=== PATIENT | female | born 1995 | race Caucasian/White ===

== ENCOUNTER 2018-07-27 11:18 | Inpatient (IN) | payer OTHER ==
[~2018-07-27] VITALS: Ht 165.1 cm; Wt 71.4 kg
[2018-07-27] VITALS (36 sets, daily range): BP systolic 124–172; BP diastolic 66–109
[~2018-07-27 11:18] MED LIST: PRENTAB9 PO; ZOFR8TAB22 PO
[2018-07-27 12:20] LABS: HEMATOCRIT 31.7 % (36.0-47.0); HEMOGLOBIN 10.8 g/dl (12.0-15.5); MEAN CORPUSCULAR HEMOGLOBIN 29.3 pg (27.0-33.0); MEAN CORPUSCULAR HGB CONC 34.1 g/dl (32.0-36.5); MEAN CORPUSCULAR VOLUME 86.1 fl (80.0-96.0); PLATELET COUNT, AUTOMATED 175 10^3/uL (150-450); RED BLOOD COUNT 3.68 10^6/uL (4.00-5.40); WHITE BLOOD COUNT 9.2 10^3/uL (4.0-10.0)
[2018-07-27 13:06] LABS: ALT/SGPT 17 U/L (12-78); BILIRUBIN,TOTAL 0.2 MG/DL (0.2-1.0); CREATININE FOR GFR 1.04 MG/DL (0.55-1.30); GLOMERULAR FILTRATION RATE > 60.0 (>60); LDH LACTATE DEHYDROGENASE 166 U/L (84-246); URIC ACID 6.4 MG/DL (2.6-6.0)
[2018-07-27] MEDS ORDERED: LR 1,000 ML IV SCH (14:06)
[2018-07-27] MEDS ORDERED: LACTATED RINGER'S 1000 ML IV STA (14:06)
[2018-07-27] MEDS ORDERED: OXYTOCIN DRIP 30 UNITS in APPROPRIATE DILUENT 1 EA IV SCH (14:15)
--- NOTE | 2018-07-27 14:18 | HPEPDOC ---
Obstetrical History & Physical General Date of Admission Jul 27, 2018 at 14:08 History of Present Illness 23 y/o at 38+1 with new dx of GHTN today. While being monitored has had very labile BP's from nl to a systolic of 163. Lab eval shows a Uric acid 6.4 and a Urine Pr/Cr is just >0.3. Preg c/b GDMA1 (well controlled). Pos FM. No VB/LOF/ALONSO/RUQ pain. 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 history Past Medical History Medical History EI asthma as a child but not in several years, no rx for albuterol currently Surgical History: Trimble teeth Family History Significant Family History: No pertinent family hx Social History Marital Status: Family situation: Spouse/partner home Psychosocial History: No pertinent psych hx * Smoker: non-smoker Alcohol: Denies Drugs: denies Abuse Violence Screening Have you been hit/kicked/slapp: No Have you been sexually assault: No Imunizations Tdap status: current Influenza Status: current Allergies Coded Allergies: No Known Drug Allergy (Verified Allergy, Unknown, 06/01/18) Medications Scheduled Multivitamins/ ( 27-0.8 mg) 1 Tab Tab, 1 TAB PO QHSP Physical Examination Physical Examination GENERAL: Alert and oriented times three. ABDOMEN: Gravid and non-tender to touch. FETUS: Is vertex (VTX) by sterile vaginal examination (SVE), 3/75/-2/vtx well applied and membranes swept EXTREMITIES: No edema. Vital Signs/I&O Vital Signs Date Time Temp Pulse Resp B/P (MAP) Pulse Ox O2 Delivery O2 Flow Rate FiO2 07/27/18 13:33 80 18 124/66 (85) 07/27/18 11:33 97.0 Laboratory Data 24H LABS Laboratory Tests 2 07/27/18 12:04: Urine Random Creatinine 26.0, Urine Random Total Protein 8.9 07/27/18 12:12: Nucleated Red Blood Cells % (auto) 0.0, Glomerular Filtration Rate > 60.0, Creatinine 1.04, Aspartate Amino Transf (AST/SGOT) 24, Alanine Aminotransferase (ALT/SGPT) 17, Lactate Dehydrogenase 166, Total Bilirubin 0.2, Uric Acid 6.4H, Syphilis Serology NONREACTIVE CBC/BMP Laboratory Tests 07/27/18 12:12 Red Blood Count 3.68 L, Mean Corpuscular Volume 86.1, Mean Corpuscular Hemoglobin 29.3, Mean Corpuscular Hemoglobin Concent 34.1, Red Cell Distribution Width 12.5, Aspartate Amino Transf (AST/SGOT) 24, Alanine Aminotransferase (ALT/SGPT) 17, Lactate Dehydrogenase 166, Total Bilirubin 0.2, Uric Acid 6.4 H Urine Culture: Contaminated Pertinent Laboratoy Data Blood Type: A+ RBC Antibody Screen: Negative HIV: Negative Hepatitis B: Negative Hepatitis C: Unknown Rapid Plasma Reagin: Nonreactive Rubella: Immune Varicella: Immune Chlamydia/Gonorrhea: Negative Group B Streptococcus: Negative Quad Screen Test: Declined Cystic Fibrosis: Declined Anatomy Ultrasound Placenta Location: Posterior Normal Anatomy: Yes Placenta Previa: No Assessment Variability: Moderate Accelerations: Positive Decelerations: None Tocometer Contractions: Yes Frequency: irregular Assessment/Plan Assessment New diag of GHTN, borderline labs for mild Pre-E. Favorable cx. Plan Admit and orient. 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 Diet: clears Group B Streptococcus (GBS) nega Labs and intravenous (IV) per unit protocol. Counseled on Pitocin and induction of labor (IOL). Lactated Ringers (LR): Bolus 1000 mL prior to epidural if desires, then at 125 mL/hr. Anticipate normal spontaneous delivery () C-S as appropriate. Sessions MD TORRES,JONA Malone MD Jul 27, 2018 14:18
[2018-07-27] MEDS: LR 1,000 ML IV SCH ×2 (14:42→21:34)
[2018-07-27] MEDS ORDERED: FENTANYL 2MCG/ML ROPIVACAINE 0.2% IN 0.9% NACL 100ML IVBAG As Ordered ONE (19:30)
[2018-07-27] MEDS ORDERED: NALOXONE INJ 0.4 MG/1 ML VIAL (J2310) IV PRN (20:30)
[2018-07-27] MEDS ORDERED: EPIDURAL COMMENT XX SCH (20:30)
[2018-07-27] MEDS ORDERED: diphenhydrAMINE INJ 50MG/ML VIAL (J1200) IV PRN (20:30)
[2018-07-27] MEDS ORDERED: REFRIGERATOR IV KEYS XX PRN (20:30)
[2018-07-27] MEDS ORDERED: ONDANSETRON 4MG/2ML VIAL (J2405) IV PRN (20:30)
[2018-07-27] MEDS ORDERED: LACTATED RINGER'S 1000 ML IV PRN (20:30)
[2018-07-27] MEDS: FENTANYL/ROPIVACAINE/NACL BAG 100 ML EPIDURAL SCH (20:30)
[2018-07-27] MEDS ORDERED: EPIDURAL/PCA KEYS XX PRN (20:30)
[2018-07-27] MEDS ORDERED: ePHEDrine SULFATE 25 MG/5 ML(5MG/ML) SYRINGE IV PRN (20:30)
[2018-07-28] VITALS (53 sets, daily range): BP systolic 117–178; BP diastolic 61–110
--- NOTE | 2018-07-28 03:59 | IPNPDOC ---
Text Note Date of Service The patient was seen on 07/28/18. NOTE Post epidural was still 3 cm per RN Pain now better controlled with epidural Cx /-1, AROM clear Pit at 12 mu/min, reg ctx's SBAR to Dr Corona at 0730, plan for recheck thereafter, sooner prn Sessions VS,Shania, I+O VS, Shania I+O Laboratory Tests 07/27/18 12:12 Red Blood Count 3.68 L, Mean Corpuscular Volume 86.1, Mean Corpuscular Hemoglobin 29.3, Mean Corpuscular Hemoglobin Concent 34.1, Red Cell Distribution Width 12.5, Aspartate Amino Transf (AST/SGOT) 24, Alanine Aminotransferase (ALT/SGPT) 17, Lactate Dehydrogenase 166, Total Bilirubin 0.2, Uric Acid 6.4 H Vital Signs Date Time Temp Pulse Resp B/P (MAP) Pulse Ox O2 Delivery O2 Flow Rate FiO2 07/27/18 21:35 71 136/79 (98) 07/27/18 19:42 98.1 20 I&O- Last 24 Hours up to 6 AM 07/28/18 06:00 Output Total 500 ml Balance -500 ml SESSIONS,JONA Malone MD Jul 28, 2018 03:59
[2018-07-28] MEDS: LR 1,000 ML IV SCH ×4 (06:54→22:52)
[2018-07-28] MEDS: FENTANYL/ROPIVACAINE/NACL BAG 100 ML EPIDURAL SCH (10:54)
[2018-07-28] MEDS ORDERED: LABETALOL HCL 100 MG/20 ML VIAL IV STA ×3 (12:02→20:37)
--- NOTE | 2018-07-28 16:11 | NUR ---
1600 HOURS PATIENT FULLY DILATED 2 HOURS PUSHING 1 HOUR 45 MINUTES SWOLLEN LABIA NOT MOVING PRESENTING PART WITH ADEQUATE PUSHING CATEGORY 1 STRIP PLAN TURN OFF PITOCIN ATTEMPTED TO MANUALLY ROTATE NO CHANGE WILL DISCUSS CS WITH PATIENT AND
[2018-07-28] MEDS ORDERED: AZITHROMYCIN INJ 500 MG, VIAL MATE ADAPTER 1 EACH in D5W 250 ML IV ONE (16:15)
[2018-07-28] MEDS ORDERED: ACETAMINOPHEN 650 MG SUPP PR ONE (16:15)
[2018-07-28] MEDS ORDERED: BUPIVACAINE HCL 0.25% 10 ML VIAL SC ONE (16:15)
[2018-07-28] MEDS ORDERED: BICITRA 30ML SOLN UDC PO ONE (16:15)
[2018-07-28] MEDS ORDERED: OXYTOCIN INJ 10 UNITS/ML VIAL (J2590) As Ordered ONE (16:27)
--- NOTE | 2018-07-28 16:29 | NUR ---
1600 hours reviewed process cs with patient and re hemorrhage infection perforation remote hysterectomy remote blood transfusion remote laceration of fetus remote admission nicu expressed understanding presently labia swollen pop caput on pelvis vertex above at -3 possibly asynclitic ,Patient had episodic gestational hypertension with one dose labetalol pre e labs normal
[2018-07-28] MEDS ORDERED: dexameTHASONE 4 MG/ML 1ML VIAL (J1100) As Ordered ONE (16:31)
[2018-07-28] MEDS ORDERED: ONDANSETRON 4MG/2ML VIAL (J2405) As Ordered ONE (16:31)
[2018-07-28] MEDS ORDERED: MORPHINE PRES-FREE INJ 10 MG/10 ML VIAL (J2274) As Ordered ONE (16:34)
[2018-07-28] MEDS ORDERED: BUPIVACAINE/DEXTROSE 0.75% 2 ML AMP As Ordered ONE (16:34)
[2018-07-28 16:40] LABS: HEMATOCRIT 29.4 % (36.0-47.0); HEMOGLOBIN 10.3 g/dl (12.0-15.5); MEAN CORPUSCULAR HEMOGLOBIN 29.3 pg (27.0-33.0); MEAN CORPUSCULAR VOLUME 83.8 fl (80.0-96.0); PLATELET COUNT, AUTOMATED 168 10^3/uL (150-450); RED BLOOD COUNT 3.51 10^6/uL (4.00-5.40); WHITE BLOOD COUNT 19.3 10^3/uL (4.0-10.0)
[2018-07-28] MEDS ORDERED: METOCLOPRAMIDE INJ 10MG/2ML VIAL (J2765) IV PRN (16:58)
[2018-07-28] MEDS ORDERED: diphenhydrAMINE INJ 50MG/ML VIAL (J1200) IV PRN (16:58)
[2018-07-28] MEDS ORDERED: NALOXONE INJ 0.4 MG/1 ML VIAL (J2310) IV PRN ×2 (16:58)
[2018-07-28] MEDS ORDERED: ONDANSETRON 4MG/2ML VIAL (J2405) IV PRN ×2 (16:58→18:30)
[2018-07-28] MEDS ORDERED: NALBUPHINE HCL 10 MG/ML AMP (J2300) IV PRN ×2 (16:58→18:30)
[2018-07-28] MEDS ORDERED: PHENYLephrine HCL 500 MCG/5 ML (100MCG/ML) SYRINGE (J2370) As Ordered ONE (17:30)
[2018-07-28] MEDS ORDERED: ePHEDrine SULFATE 25 MG/5 ML(5MG/ML) SYRINGE As Ordered ONE (17:30)
[2018-07-28 17:46] LABS: CORD GAS ABE A -4.6; CORD GAS HCO3 A 22.7 MEQ/L; CORD GAS PCO2 A 50.1 mmHg; CORD GAS PH A 7.274 UNITS; CORD GAS PO2 A 17.1 mmHg; CORD GAS SBC A 18.9 MEQ/L; CORD GAS TCO2 A 24.2 MEQ/L
[2018-07-28 17:47] LABS: CORD GAS ABE V -4.4; CORD GAS HCO3 V 21.1 MEQ/L; CORD GAS O2 SAT V 81.3 %; CORD GAS PCO2 V 40.1 mmHg; CORD GAS PH V 7.338 UNITS; CORD GAS PO2 V 36.7 mmHg; CORD GAS SBC V 20.5 MEQ/L; CORD GAS TCO2 V 22.3 MEQ/L
[2018-07-28 17:51] LABS: CORD GAS O2 SAT A 31.9 %
[2018-07-28] MEDS ORDERED: OXYTOCIN DRIP 30 UNITS in APPROPRIATE DILUENT 1 EA IV SCH (18:06)
[2018-07-28] MEDS ORDERED: RHOGAM 300 MCG (1500 IU) INJ (J2790) IM SCH (18:15)
[2018-07-28] MEDS ORDERED: MOM 30ML SUSPENSION UDC PO PRN (18:15)
[2018-07-28] MEDS ORDERED: PERCOCET 5MG/325MG TAB PO PRN ×3 (18:15→18:30)
[2018-07-28] MEDS ORDERED: METHYLERGONOVINE MALEATE 0.2 MG TAB PO PRN (18:15)
[2018-07-28] MEDS ORDERED: ANUSOL HC CREAM 30GM TOP PRN (18:15)
[2018-07-28] MEDS ORDERED: DOCUSATE SODIUM 100 MG CAP PO PRN (18:15)
[2018-07-28] MEDS ORDERED: MEASLES,MUMPS,RUBELLA VACCINE INJ (MMR-II) (90707) SC SCH (18:15)
[2018-07-28] MEDS ORDERED: HYDROMORPHONE HCL 0.5 MG/ 0.5 ML SYRINGE (J1170 PER 1) IV PRN (18:30)
[2018-07-28] MEDS ORDERED: MEPERIDINE INJ 25 MG/ML VIAL (J2175) IV PRN (18:30)
--- NOTE | 2018-07-28 18:34 | IPN ---
DATE: 05/27/2019 This patient has requested circumcision of their male infant. After discussing risks and benefits of circumcision, the medical nonmedical indications, penile block, and aftercare, expressed understanding of penile block, aftercare, and bleeding, signed and witnessed the consent form. All questions were answered. A 20-minute discussion. We await the clearance by the tester operator helper.
[2018-07-28] MEDS ORDERED: fentaNYL 100 MCG/2 ML INJECTION (J3010) As Ordered ONE (18:36)
[2018-07-28] MEDS ORDERED: OXYTOCIN 30 UNITS IN 0.9% NaCl 500ML IV BAG (J2590) As Ordered ONE (18:37)
[2018-07-28] MEDS: fentaNYL 100 MCG/2 ML INJECTION (J3010) IV PRN ×2 (18:43→18:54)
[2018-07-28] MEDS ORDERED: KETOROLAC 30 MG/ML VIAL (J1885) As Ordered ONE (19:01)
[2018-07-28] MEDS: KETOROLAC 30 MG/ML VIAL (J1885) IV SCH (19:04)
[2018-07-28] MEDS: LABETALOL 100 MG TAB PO SCH (22:23)
[2018-07-29] MEDS: KETOROLAC 30 MG/ML VIAL (J1885) IV SCH ×3 (01:22→12:50)
[2018-07-29 02:00] VITALS: BP 113/55
[2018-07-29 06:00] VITALS: BP 115/54
--- NOTE | 2018-07-29 06:47 | RO ---
DATE OF PROCEDURE: 07/28/2018 PREOPERATIVE DIAGNOSES: Gestational hypertension, AGDM1, POP, failure to descend failure to progress, arrest of descent. POSTOPERATIVE DIAGNOSES: Gestational hypertension, AGDM1, POP, failure to descend failure to progress, arrest of descent, polyhydramnios. OPERATION PROPOSED: Primary section. OPERATION PERFORMED: Primary section. SURGEON: Germain Corona MD MANAGER STEEL: Robe Isaac DO for retraction extraction and visualization. ANESTHESIA: Epidural, spinal and local anesthetic for intraperitoneal procedures. ESTIMATED BLOOD LOSS: 500 mL After adequate anesthesia, prepped and draped in the supine position, Bain catheter bladder draining clear urine, appropriate antibiotics on board, acetaminophen suppository 1300 mg per rectum, sequentials in place and Bain catheter draining some bloody urine, a low transverse incision was made into the abdomen passing through abdominal layers securing hemostasis. Opening the peritoneal cavity we noticed the bladder was quite bulging anteriorly, we avoided that. We did a low transverse incision into the uterus clear liqua, moderate amount, baby was the POP position looking up at us. We delivered a live male infant weighing 3540 grams, 7 pounds 13 ounces. scores of eight and none at 1 and 5 minutes respectively. The cord was around the baby's leg and neck times one. The arterial pH was 7.27, base excess -4.6, venous pH 7.33, base excess -4.4. The placenta was manually removed, three-vessel cord, membranes and tissues intact. The internal aspect of the uterus was swept clean. The uterus contracted well down on Pitocin. The lower segment was oversewn in the usual fashion in two layers imbricating the second layer and then reperitonealization was performed. With instrument and pad count correct, both gutters appeared to be normal. No excessive bleeding was noted. The uterus is well contracted down. The lower segment was clean and dry. The abdomen was then closed with running stitch for the peritoneum, same for the fascia. Interrupted for subcu. Marcaine 0.25% to skin and skin Telfa and spray and the patient was sent to recovery in good condition. RAMIRO
[2018-07-29] MEDS: LR 1,000 ML IV SCH ×2 (06:49→10:06)
[2018-07-29 06:50] LABS: HEMATOCRIT 24.9 % (36.0-47.0); MEAN CORPUSCULAR HEMOGLOBIN 28.9 pg (27.0-33.0); MEAN CORPUSCULAR HGB CONC 33.3 g/dl (32.0-36.5); MEAN CORPUSCULAR VOLUME 86.8 fl (80.0-96.0); PLATELET COUNT, AUTOMATED 149 10^3/uL (150-450); RED BLOOD COUNT 2.87 10^6/uL (4.00-5.40); WHITE BLOOD COUNT 16.6 10^3/uL (4.0-10.0)
[2018-07-29 06:55] LABS: HEMOGLOBIN 8.3 g/dl (12.0-15.5)
--- NOTE | 2018-07-29 07:41 | IPN ---
DATE: 07/29/2018 This lady is a 23-year-old 1 now para 1, admitted at 38 and 1weeks' gestation for gestational age for gestational hypertension, induction of labor and a GDMA1. She had a primary section for POP, failure to descend, live male 7 pounds 13 ounces, 3540 grams scores of eight and nine at 1 and 5 minutes respectively. Cord around the times one. Arterial pH 7.24, base excess -4.6, venous pH 7.33, base excess -4.4. On her first day we discussed phlebitis, cystitis, mastitis, endometritis and cellulitis, diet, exercise pain management, perineal, breast and wound care. The patient is uncertain about control at the present time. Her admission hemoglobin 10.8, hematocrit 31.7 and platelets were 175. day 1 hemoglobin 10.3, hematocrit 29.4 and platelets 168. Her vital signs this morning blood pressure 113/55, respirations 18, pulse 79, temperature is 96.9. She had some intermittent midrange and severe range blood pressures such as was 172/94 and 167/90, 158/90, 150/78. We had initially given her labetalol IV and we were going to start her on labetalol regime however, after manual evaluation of her blood pressures they came down to normalized blood pressure. However, since she was having intermittent elevated severe range blood pressures, we elected to start her on 100 mg of labetalol b.i.d. p.o. in order to evaluate her blood pressures in the next 24-48 hours. Her blood pressure this morning as mentioned was the normotensive range and she had no longer any severe range blood pressures. She denies any headache right upper quadrant pain, visual disturbances. She had a preeclamptic profile which was normal except for elevated uric acid. The rest examination unremarkable. Normocephalic, atraumatic. Neck full range of motion. Pupils equal and reactive to light. Distal pulses symmetric. No evidence of DVT, PE or superficial phlebitis. Chest is clear bilaterally to bases. No wheezes or rhonchi. Abdomen soft. Uterus 2 below. Lochia is moderate. Four quadrant bowel sounds are noted. Incision is clean and dry. In summary we have a term gestation delivered by primary section live male . Plan on discharge for tomorrow with medications.
[2018-07-29] MEDS: LABETALOL 100 MG TAB PO SCH ×2 (09:45→20:16)
[2018-07-29] MEDS: PRENATAL VITAMINS CHEWABLE TABLET PO SCH (09:45)
[2018-07-29 09:49] VITALS: BP 119/59
[2018-07-29] MEDS ORDERED: LACTATED RINGER'S 1000 ML IV ONE (10:30)
[2018-07-29 14:00] VITALS: BP 111/62
[2018-07-29 18:00] VITALS: BP 122/70
[2018-07-29] MEDS: IBUPROFEN 800 MG TAB PO SCH (20:16)
[2018-07-29 21:45] VITALS: BP 126/71
[2018-07-30 02:00] VITALS: BP 125/69
[2018-07-30] MEDS: IBUPROFEN 800 MG TAB PO SCH (05:28)
[2018-07-30 06:00] VITALS: BP 126/68
[2018-07-30 09:10] VITALS: BP 124/68
[2018-07-30] MEDS: LABETALOL 100 MG TAB PO SCH (09:10)
[2018-07-30] MEDS: PRENATAL VITAMINS CHEWABLE TABLET PO SCH (09:11)
[2018-07-30 10:00] VITALS: BP 127/69
[2018-07-30] MEDS ORDERED: IBUP-1114 PO (12:43)
[2018-07-30] MEDS ORDERED: OXYC1TAB23 PO ×2 (12:46→12:47)
[2018-07-30] MEDS ORDERED: LABE10TAB PO (12:46)
[2018-07-30] MEDS ORDERED: MOM30SS PO (12:48)
[2018-07-30] MEDS ORDERED: COLA100C5 PO (12:48)
[2018-07-30] MEDS ORDERED: ANUS2.5C2 TOP (12:49)
--- NOTE | 2018-07-30 13:34 | DSES ---
DATE OF ADMISSION: 07/27/2018 DATE OF DISCHARGE: 07/30/2018 This lady is a 23-year-old, 1, now para 1, was admitted with an AGDM1 gestational hypertension, induction labor at 38 and 1 weeks of gestation. She had a primary section for failure to descend, persistent occiput posterior (POP) position, delivered a live male infant weighing 7 pounds 13 ounces (3540 grams), score of 8 and 9 at 1 and five minutes respectively. Arterial pH 7.27, base excess -4.6. Venous pH 7.38, base excess -4.4. It was noted that she did have polyhydramnios at the time of delivery. On her second day, we discussed phlebitis, cystitis, mastitis, endometritis and cellulitis, diet, exercise, pain management, perineal, breast and wound care. Admitting hemoglobin was 10.8, hematocrit 31.7 and platelets were 175. Discharge hemoglobin 8.3, hematocrit 24.9 and platelets are 149, and she is asymptomatic. Her vital signs on discharge, her blood pressure was 127/69, respirations 17, pulse 84, temperature is 98.1. She is on labetalol 100 mg twice a day; is doing very well, tolerating it as well. No evidence to suggest any hypotensive episodes. The patient was dispensed with medications, will have a followup in 2 weeks for incision check, 1 week for blood pressure check, 6 weeks for check. At which time, we will revisit her AGDM1. The rest of the examination unremarkable. She is normocephalic, atraumatic. Neck full range of motion. Pupils equal and reactive to light. She is pale but asymptomatic. Chest is clear bilaterally at bases. No wheezes or rhonchi. No costovertebral angle (CVA) tenderness. Abdomen was soft. Uterus two below. Lochia is moderate. Four quadrant bowel sounds. Incision is clean and dry, and perineum is intact. She has no rashes, lesions or pruritus. No arthralgia or myalgia. No complaint of joint pain. No complaint of cough, wheeze, shortness of breath or dyspnea on exertion. No frequency. No nausea, vomiting, diarrhea or constipation. Diabetic issues as mentioned. In summary, we have a term gestation delivered a live male infant for planned discharge today, not breast feeding, will discuss control at a later date, and the patient was discharged with medications and appointments. edited: 07/31/2018 0725 tkf RAMIRO
== END 2018-07-30 13:15 | disposition home or self-care (01) | DRG 773 ==
LOC: M LDO 11:18 → M LDI 14:08 → M OBS 07-28 19:36
PROVIDERS: ADMIT Obstetrics & Gynecology; ATTEND Obstetrics & Gynecology
PROC: 3E033VJ Introduction of Other Hormone into Peripheral Vein, Percutaneous Approach (ICD-10-PCS; 2018-07-27)
PROC: 10D00Z1 Extraction of Products of Conception, Low, Open Approach (ICD-10-PCS; principal; 2018-07-28 16:50)
DX: O13.4 Gestational [pregnancy-induced] hypertension without significant proteinuria, complicating childbirth (principal); O24.420 Gestational diabetes mellitus in childbirth, diet controlled; Z3A.38 38 weeks gestation of pregnancy; O64.0XX0 Obstructed labor due to incomplete rotation of fetal head, not applicable or unspecified; O40.3XX0 Polyhydramnios, third trimester, not applicable or unspecified; Z37.0 Single live birth

== ENCOUNTER → 2020-05-22 | Outpatient (CLI) | payer OTHER ==
[~2020-05-22] MED LIST changes: +ANUS2.5C2 TOP; +COLA100C5 PO; +IBUP-1114 PO; +ISOVUE-370 76% 100ML VIAL As Ordered ONE; +LABE100T4 PO; +MOM30SS PO; +OXYC1TAB23 PO
--- NOTE | 2020-05-22 13:33 | ROOPDOC ---
[facility] Report Of Operation Report of Operation PRE-PROCEDURE DIAGNOSIS: 1) Infertility POST-PROCEDURE DIAGNOSIS: Same PHYSICIAN PERFORMING PROCEDURE: Dr. Vickers CONSENT: The HSG procedure, indication, risks, and benefits were discussed with the patient and informed written consent was obtained. PATIENT COUNSELLED IN REGARDS TO HSG RISKS AND BENEFITS TO INCLUDE INFECTION, DISRUPTION OF , BLEEDING, AND PAIN. FINAL TIME OUT PERFORMED IMMEDIATELY PRIOR TO HSG. PROCEDURE: STERILE SPECULUM PLACED CERVIX CLEANSED WITH BETADINE TRIPLE SWAB TENACULUM UTILIZED (NO) HSG CATHETER PASSED, BALLOON INFLATED APPROX 10mL OF ISOVUE CONTRAST WAS INFUSED AP AND OBLIQUE IMAGES WERE OBTAINED PRELIMINARY FINDINGS: 1) UTERINE FINDINGS NORMAL 2) LEFT FALLOPIAN TUBE PATENT 3) RIGHT FALLOPIAN TUBE PATENT PATIENT TOLERATED THE PROCEDURE WELL DISCHARGED TO HOME WITH PRECAUTIONS ANTIBIOTICS RECOMMENDED: NO COMPLICATIONS: NONE DISCHARGE INSTRUCTIONS GIVEN PATIENT TO F/U WITH ORDERING PROVIDER FOR FINAL IMPRESSION AND CLINICAL CORRELATION APPROX TIME: 10 MIN COUNSELLING 20 MIN IN PROCEDURE JAMEL VICKERS DO May 22, 2020 13:33
--- NOTE | 2020-05-22 14:12 | REP ---
INDICATION: INFERTILITY. COMPARISON: None. TECHNIQUE: The cervix was catheterized and contrast was injected by the referring clinician into the endometrial canal. Fluoroscopic images are obtained. FINDINGS: The uterine cavity fills readily with contrast. There is no contour abnormality or filling defect. There is prompt passage of contrast through both fallopian tubes with bilateral intraperitoneal spillage. There is no evidence of hydrosalpinx bilaterally. IMPRESSION: No uterine abnormalities. There is bilateral fallopian tube patency. 0.7 minutes of fluoroscopy time was utilized. <Electronically signed by Will Perez > 05/22/20 [id number]
== END ==
LOC: M RADPRO 11:09
PROVIDERS: ATTEND Obstetrics & Gynecology
DX: N97.9 Female infertility, unspecified (principal)
CPT/HCPCS: 58340; 74740; Q9967

== ENCOUNTER 2020-08-07 14:38 | Emergency (ER) | payer OTHER ==
[~2020-08-07] VITALS: Ht 165.1 cm; Wt 56.6 kg
[~2020-08-07 14:38] MED LIST changes: -ISOVUE-370 76% 100ML VIAL As Ordered ONE
[2020-08-07 15:23] LABS: BASO # 0.1 10^3/uL (0.0-0.2); EOS # 0.1 10^3/uL (0.0-0.5); EOS % 1.1 % (0.0-3.0); HEMATOCRIT 41.7 % (36.0-47.0); HEMOGLOBIN 13.8 g/dl (12.0-15.5); LYMPH # 2.2 10^3/uL (1.5-5.0); LYMPH % 26.6 % (24.0-44.0); MEAN CORPUSCULAR HEMOGLOBIN 28.9 pg (27.0-33.0); MEAN CORPUSCULAR HGB CONC 33.1 g/dl (32.0-36.5); MEAN CORPUSCULAR VOLUME 87.4 fl (80.0-96.0); MONO # 0.7 10^3/uL (0.0-0.8); MONO % 8.3 % (2.0-8.0); NEUTROPHILS # 5.2 10^3/uL (1.5-8.5); NEUTROPHILS % 62.6 % (36.0-66.0); PLATELET COUNT, AUTOMATED 244 10^3/uL (150-450); RED BLOOD COUNT 4.77 10^6/uL (4.00-5.40); WHITE BLOOD COUNT 8.3 10^3/uL (4.0-10.0)
[2020-08-07 16:12] VITALS: BP 110/62
== END 2020-08-07 16:23 | disposition home or self-care (01) ==
LOC: M ED 14:38
DX: N92.0 Excessive and frequent menstruation with regular cycle (principal); Z87.59 Personal history of other complications of pregnancy, childbirth and the puerperium; Z86.32 Personal history of gestational diabetes; Z87.891 Personal history of nicotine dependence; Z79.899 Other long term (current) drug therapy

== ENCOUNTER → 2021-07-16 | Outpatient (CLI) | payer OTHER ==
[~2021-07-16] MED LIST changes: +ECOT81TA5 PO
== END ==
LOC: M RAD 13:03
PROVIDERS: ATTEND Obstetrics & Gynecology
DX: O44.43 Low lying placenta NOS or without hemorrhage, third trimester (principal); Z3A.37 37 weeks gestation of pregnancy

== ENCOUNTER 2021-07-24 07:12 | Inpatient (IN) | payer OTHER ==
[~2021-07-24] VITALS: Ht 165.1 cm; Wt 80.7 kg
[2021-07-24] VITALS (8 sets, daily range): BP systolic 109–126; BP diastolic 56–76
[2021-07-24] MEDS ORDERED: LACTATED RINGER'S 1000 ML IV STA (07:33)
[2021-07-24] MEDS ORDERED: AZITHROMYCIN INJ 500 MG, VIAL MATE ADAPTER 1 EACH in NS 250 ML IV ONE (07:35)
[2021-07-24] MEDS ORDERED: ACETAMINOPHEN 650 MG SUPP PR ONE (07:35)
[2021-07-24] MEDS ORDERED: BUPIVACAINE HCL 0.25% 10ML VIAL SC ONE (07:35)
[2021-07-24] MEDS ORDERED: ceFAZolin SOD 2 GM in IV 1 EA IV ONE (07:35)
[2021-07-24] MEDS ORDERED: BICITRA 30ML SOLN UDC PO ONE (07:35)
[2021-07-24 08:26] LABS: BASO # 0.1 10^3/uL (0.0-0.2); BASO % 0.7 % (0.0-1.0); EOS # 0.1 10^3/uL (0.0-0.5); EOS % 0.9 % (0.0-3.0); HEMATOCRIT 36.3 % (36.0-47.0); HEMOGLOBIN 12.3 g/dl (12.0-15.5); LYMPH # 1.6 10^3/uL (1.5-5.0); LYMPH % 17.4 % (24.0-44.0); MEAN CORPUSCULAR HEMOGLOBIN 30.9 pg (27.0-33.0); MEAN CORPUSCULAR HGB CONC 33.9 g/dl (32.0-36.5); MEAN CORPUSCULAR VOLUME 91.2 fl (80.0-96.0); MONO # 0.9 10^3/uL (0.0-0.8); MONO % 9.4 % (2.0-8.0); NEUTROPHILS # 6.5 10^3/uL (1.5-8.5); NEUTROPHILS % 70.4 % (36.0-66.0); PLATELET COUNT, AUTOMATED 150 10^3/uL (150-450); RED BLOOD COUNT 3.98 10^6/uL (4.00-5.40); WHITE BLOOD COUNT 9.2 10^3/uL (4.0-10.0)
[2021-07-24] MEDS: LR 1,000 ML IV SCH ×3 (09:13→23:03)
[2021-07-24] MEDS ORDERED: METHYLERGONOVINE MALEATE 0.2 MG/ML VIAL (J2210) IM PRN ×2 (09:35→11:20)
[2021-07-24] MEDS ORDERED: OXYTOCIN INJ 10 UNITS/ML VIAL (J2590) IV PRN (09:35)
[2021-07-24] MEDS ORDERED: OXYTOCIN DRIP 30 UNITS in IV 1 EA IV PRN ×4 (09:35)
[2021-07-24] MEDS ORDERED: ONDANSETRON 4MG/2ML VIAL As Ordered ONE (10:16)
[2021-07-24] MEDS ORDERED: MORPHINE PRES-FREE INJ 10 MG/10 ML VIAL (J2274) As Ordered ONE (10:16)
[2021-07-24] MEDS ORDERED: PHENYLephrine 500MCG 5ML (100MCG/ML) SYRINGE As Ordered ONE ×2 (10:33→10:56)
[2021-07-24] MEDS ORDERED: ePHEDrine SULFATE 25 MG/5 ML(5MG/ML) SYRINGE As Ordered ONE ×2 (10:33→10:55)
[2021-07-24] MEDS ORDERED: OXYTOCIN 30 UNITS IN 0.9% NaCl 500ML IV BAG (J2590) As Ordered ONE ×2 (10:34→12:08)
[2021-07-24] MEDS ORDERED: METOCLOPRAMIDE INJ 10MG/2ML VIAL (J2765 PER 1) As Ordered ONE (10:37)
[2021-07-24] MEDS ORDERED: OXYTOCIN INJ 10 UNITS/ML VIAL (J2590) As Ordered ONE (10:41)
[2021-07-24 11:07] LABS: CORD GAS ABE V -1.8; CORD GAS HCO3 V 25.3 MEQ/L; CORD GAS O2 SAT V 32.9 %; CORD GAS PCO2 V 51.5 mmHg; CORD GAS PH V 7.309 UNITS; CORD GAS PO2 V 16.7 mmHg; CORD GAS SBC V 21.4 MEQ/L; CORD GAS TCO2 V 26.9 MEQ/L
[2021-07-24 11:08] LABS: CORD GAS ABE A -1.9; CORD GAS HCO3 A 26.7 MEQ/L; CORD GAS O2 SAT A 33.2 %; CORD GAS PCO2 A 61.3 mmHg; CORD GAS PH A 7.257 UNITS; CORD GAS PO2 A 18.3 mmHg; CORD GAS SBC A 21.3 MEQ/L; CORD GAS TCO2 A 28.6 MEQ/L
[2021-07-24] MEDS ORDERED: DOCUSATE SODIUM 100MG CAPSULE PO PRN (11:20)
[2021-07-24] MEDS ORDERED: MOM 30ML SUSPENSION UDC PO PRN (11:20)
[2021-07-24] MEDS ORDERED: OXYTOCIN DRIP 30 UNITS in IV 1 EA IV SCH (11:20)
[2021-07-24] MEDS ORDERED: SIMETHICONE 80MG CHEW TAB PO PRN (11:20)
[2021-07-24] MEDS ORDERED: ACETAMINOPHEN 500 MG TAB PO PRN (11:20)
[2021-07-24] MEDS ORDERED: MEASLES,MUMPS,RUBELLA VACCINE INJ (MMR-II) (90707) SC SCH (11:20)
[2021-07-24] MEDS ORDERED: ANUSOL HC CREAM 30GM TOP PRN (11:20)
[2021-07-24] MEDS ORDERED: METHYLERGONOVINE MALEATE 0.2 MG/ML VIAL (J2210) IM ONE (11:20)
[2021-07-24] MEDS ORDERED: OXYTOCIN INJ 10 UNITS/ML VIAL (J2590) IV ONE (11:20)
[2021-07-24] MEDS ORDERED: PERCOCET 5MG/325MG TAB PO PRN ×3 (11:20→11:45)
[2021-07-24] MEDS ORDERED: RHOGAM 300 MCG (1500 IU) INJ (J2790) IM SCH (11:20)
[2021-07-24] MEDS ORDERED: OXYTOCIN DRIP 30 UNITS in IV 1 EA IV ONE (11:20)
[2021-07-24] MEDS ORDERED: ACETAMINOPHEN TAB 650MG DOSE (2X325MG) PO PRN (11:20)
[2021-07-24] MEDS ORDERED: KETOROLAC 60MG 2ML VIAL As Ordered ONE (11:20)
[2021-07-24] MEDS ORDERED: METHYLERGONOVINE MALEATE 0.2 MG TAB PO PRN (11:20)
[2021-07-24] MEDS ORDERED: LR 1,000 ML IV SCH (11:45)
[2021-07-24] MEDS ORDERED: fentaNYL 100 MCG/2 ML INJECTION IV PRN (11:45)
[2021-07-24] MEDS ORDERED: ONDANSETRON 4MG/2ML VIAL IV PRN ×2 (11:45→18:40)
[2021-07-24] MEDS ORDERED: LACTATED RINGER'S 1000 ML IV ONE (16:40)
[2021-07-24] MEDS: KETOROLAC 30 MG/ML 1ML VIAL IV SCH ×2 (17:02→23:03)
[2021-07-24] MEDS: METHYLERGONOVINE MALEATE 0.2 MG TAB PO SCH ×2 (18:18→23:03)
[2021-07-25 02:00] VITALS: BP 113/61
[2021-07-25] MEDS: KETOROLAC 30 MG/ML 1ML VIAL IV SCH (05:41)
[2021-07-25] MEDS: METHYLERGONOVINE MALEATE 0.2 MG TAB PO SCH ×2 (05:41→12:02)
[2021-07-25 06:00] VITALS: BP 108/65
[2021-07-25] MEDS: PRENATAL VITAMINS CHEWABLE TABLET PO SCH (07:51)
[2021-07-25] MEDS: LR 1,000 ML IV SCH (08:12)
[2021-07-25 09:49] LABS: HEMATOCRIT 37.2 % (36.0-47.0); HEMOGLOBIN 12.4 g/dl (12.0-15.5); MEAN CORPUSCULAR HEMOGLOBIN 30.6 pg (27.0-33.0); MEAN CORPUSCULAR HGB CONC 33.3 g/dl (32.0-36.5); MEAN CORPUSCULAR VOLUME 91.9 fl (80.0-96.0); PLATELET COUNT, AUTOMATED 126 10^3/uL (150-450); RED BLOOD COUNT 4.05 10^6/uL (4.00-5.40); WHITE BLOOD COUNT 11.5 10^3/uL (4.0-10.0)
[2021-07-25 10:00] VITALS: BP 116/66
[2021-07-25 14:00] VITALS: BP 123/64
[2021-07-25] MEDS: IBUPROFEN 600MG TAB PO PRN (14:23)
[2021-07-25 18:00] VITALS: BP 128/64
[2021-07-25 22:19] VITALS: BP 128/68
[2021-07-26 02:19] VITALS: BP 112/57
[2021-07-26 06:47] VITALS: BP 127/64
[2021-07-26] MEDS ORDERED: PERCOCET PO (07:54)
[2021-07-26] MEDS ORDERED: IBUP-1022 PO (07:54)
[2021-07-26] MEDS ORDERED: ACET-683 PO (07:54)
[2021-07-26] MEDS: IBUPROFEN 600MG TAB PO PRN (08:16)
[2021-07-26] MEDS: PRENATAL VITAMINS CHEWABLE TABLET PO SCH (08:16)
== END 2021-07-26 11:33 | disposition home or self-care (01) | DRG 772 ==
LOC: M LDI 07:12 → M OBS 13:14
PROVIDERS: ADMIT Obstetrics & Gynecology; ATTEND Obstetrics & Gynecology
PROC: 10D00Z1 Extraction of Products of Conception, Low, Open Approach (ICD-10-PCS; principal; 2021-07-24 09:30)
DX: O44.00 Complete placenta previa NOS or without hemorrhage, unspecified trimester (principal); O98.52 Other viral diseases complicating childbirth; Z37.0 Single live birth; Z3A.38 38 weeks gestation of pregnancy; O34.211 Maternal care for low transverse scar from previous cesarean delivery; B00.9 Herpesviral infection, unspecified; F17.200 Nicotine dependence, unspecified, uncomplicated; O99.334 Smoking (tobacco) complicating childbirth; O40.3XX0 Polyhydramnios, third trimester, not applicable or unspecified